=== PATIENT | male | born 1990 ===

== ENCOUNTER 2023-01-09 14:26 | Outpatient (CLI) | payer MEDICAID | END 2023-01-09 23:59 | disposition EMS.NT | LOC: EMS 14:26 | DX: R41.82 Altered mental status, unspecified (principal) ==

== ENCOUNTER 2023-01-11 09:01 | Outpatient (CLI) | payer MEDICAID | END 2023-01-11 23:59 | disposition EMS.NT | LOC: EMS 09:01 | DX: R40.4 Transient alteration of awareness (principal) ==